=== PATIENT | male | born 2005 | race Caucasian/White ===

== ENCOUNTER 2023-08-22 18:56 | Emergency (ER) | payer OTHER, SELFPAY ==
[~2023-08-22] VITALS: Ht 188 cm; Wt 101.8 kg
[2023-08-22 22:51] VITALS: BP 128/74; TEMP 98.4; O2SAT 99
== END 2023-08-22 23:14 | disposition home or self-care (01) ==
LOC: EDBD 18:56 → M ED 18:56
DX: S90.31XA Contusion of right foot, initial encounter (principal); W20.8XXA Other cause of strike by thrown, projected or falling object, initial encounter; Y92.9 Unspecified place or not applicable

== ENCOUNTER 2023-12-20 19:41 | Emergency (ER) | payer OTHER ==
[~2023-12-20] VITALS: Ht 188 cm; Wt 120.4 kg
[2023-12-20 19:42] VITALS: BP 164/79; TEMP 97.5; O2SAT 100
[2023-12-20 20:50] LABS: RSV AMPLIFICATION NEGATIVE (NEGATIVE)
== END 2023-12-20 21:52 | disposition left against medical advice (07) ==
LOC: M ED 19:41
DX: Z53.21 Procedure and treatment not carried out due to patient leaving prior to being seen by health care provider (principal)

== ENCOUNTER 2024-01-23 10:43 | Emergency (ER) | payer OTHER ==
[~2024-01-23] VITALS: Ht 188 cm; Wt 117.3 kg
[2024-01-23 12:15] LABS: BASO % 0.4 % (0.0-1.0); HEMATOCRIT 41.3 % (42.0-52.0); HEMOGLOBIN 14.3 g/dl (13.5-17.5); LYMPH # 1.3 10^3/uL (1.5-5.0); LYMPH % 19.1 % (24.0-44.0); MEAN CORPUSCULAR HEMOGLOBIN 32.1 pg (27.0-33.0); MEAN CORPUSCULAR HGB CONC 34.6 g/dl (32.0-36.5); MEAN CORPUSCULAR VOLUME 92.6 fl (80.0-96.0); MONO # 0.9 10^3/uL (0.0-0.8); MONO % 13.5 % (2.0-8.0); NEUTROPHILS # 4.5 10^3/uL (1.5-8.5); NEUTROPHILS % 66.7 % (36.0-66.0); PLATELET COUNT, AUTOMATED 205 10^3/uL (150-450); RED BLOOD COUNT 4.46 10^6/uL (4.30-6.10); WHITE BLOOD COUNT 6.7 10^3/uL (4.0-10.0)
[2024-01-23 12:44] LABS: LIPASE 40 U/L (12-53)
[2024-01-23 12:47] LABS: ALBUMIN 4.3 G/DL (3.2-5.2); ALKALINE PHOSPHATASE 88 U/L (46-116); ALT/SGPT 36 U/L (7.0-40); AST/SGOT 36 U/L (<34); BILIRUBIN,DIRECT 0.2 MG/DL (<0.4); BILIRUBIN,TOTAL 0.4 MG/DL (0.3-1.2); BLOOD UREA NITROGEN 10 MG/DL (9-23); CALCIUM LEVEL 8.8 MG/DL (8.5-10.1); CARBON DIOXIDE LEVEL 28 MMOL/L (20-31); CHLORIDE LEVEL 101 MMOL/L (98-107); GLUCOSE, FASTING 99 MG/DL (60-100); POTASSIUM SERUM 3.5 MMOL/L (3.5-5.1); SODIUM LEVEL 138 MMOL/L (136-145); TOTAL PROTEIN 7.5 G/DL (5.7-8.2)
[2024-01-23 16:30] VITALS: BP 142/84; TEMP 100.1; O2SAT 98
== END 2024-01-23 16:32 | disposition home or self-care (01) ==
LOC: M ED 10:43
DX: J09.X2 Influenza due to identified novel influenza A virus with other respiratory manifestations (principal)